=== PATIENT | male | born 2005 | race Caucasian/White ===

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

== ENCOUNTER 2024-02-11 22:32 | Emergency (ER) | payer OTHER, SELFPAY ==
--- NOTE | 2024-02-11 22:43 | ED_ITS ---
HPI - Animal Bite General Chief Complaint: Wound/Laceration Stated Complaint: dog bite Time Seen by Provider: 02/11/24 22:40 Source: patient Mode of arrival: ambulatory Limitations: no limitations History of Present Illness ED Provider: Dr. Fabián Rivera HPI narrative: 18-year-old male with no significant past medical history who presents to the emergency department for evaluation of pain and swelling in the right hand after sustaining a dog bite yesterday. The patient states that he was playing with his dog. He reached for a rope toy at the same time that the dog did and the dog bit his hand. Patient states that initially had pain in his hand and thumb around the areas of the dog bite. He states this evening however the pain got worse and he noticed increased swelling of the back of his hand. He denied fever, chills, fatigue. Patient does not know when his last tetanus shot was given. 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 Related Data Previous Rx's ?Medication ?Instructions ?Recorded ibuprofen 600 mg tablet 600 mg PO Q6H PRN fever or pain 09/21/22 #30 tabs lidocaine 4 % topical patch 1 patch topical DAILY PRN pain #10 09/21/22 (Salonpas (lidocaine)) ea amoxicillin 875 mg-potassium 1 tab PO Q12H 7 days #14 tabs 02/11/24 clavulanate 125 mg tablet Allergies Allergy/AdvReac Type Severity Reaction Status Date / Time No Known Allergies Allergy Verified 02/11/24 22:47 [No Known Allergies*] Review of Systems 2 Review of Systems: Yes all other systems are reviewed and are negative PMFSH Past Medical History Medical History No known health problems Social History Social History Alcohol intake: never Substance Use Type: Marijuana Physical Exam ED Exam: General: Awake, alert in no distress Extremities: Right hand: Patient has multiple puncture wounds to the dorsal aspect of his hand and dorsal aspect of the index finger. There is significant soft tissue swelling, erythema, increased warmth over the 3rd 4th metacarpal area. Patient also has a superficial puncture wound to the right thumb with increased swelling over the 1st metacarpal area. Patient has normal strength but does have pain with making a fist and with moving his right thumb. Psych: Pleasant, cooperative Medical Decision Making Medical Decision Making MDM Narrative: 18-year-old male with no significant past medical history who presents emergency department for evaluation of pain and swelling left hand after sustaining a provoked dog bite to the left hand yesterday. Patient's pain and swelling increased today therefore he came to the emergency department to be seen. Patient had no systemic symptoms. He does not know when his last tetanus shot was given. The dog is owned by the patient and vaccinations are up-to-date. The dog and also be quarantine at home. Patient's vital signs were normal. Examination did reveal multiple bites to the dorsal aspect of the right hand, with a superficial bite/scratch wound to the dorsal aspect of the right thumb and index finger. Differential diagnosis: ?Includes but is not limited to crush injury, cellulitis, dog bite Patient was initially treated with the following:Tdap 0.5 mL IM, Augmentin 875/125 orally and ibuprofen 400 mg orally Course: 22:53 Patient's presentation is consistent with cellulitis after a dog bite that happened 2 days prior to presentation. Patient was started on Augmentin 875/125 q.12 hours x7 days. He was also advised to take ibuprofen 40 mg 3 times a day as needed for pain. The patient was advised to keep his hand elevated and to use a hot compress for 10-15 minutes 4 to 6 times a day. Patient's wounds were covered with bacitracin and a nonstick dressing. He was also placed in a cock- up wrist splint. Patient will need to follow-up with our hand surgeon in 2-3 days. I did tell him he should return to the emergency department if his symptoms get worse. He was given printed and verbal instructions and discharged home Independent Historian Clinical information obtained from an independent historian. History obtained from or confirmed by: Parent Prescription Management I considered prescription management with: Antibiotic Discharge Plan Discharge Clinical Impression: Dog bite of left hand including fingers with infection Patient Disposition: Home, Self-Care Instructions: Animal Bite (ED) Additional Instructions: Dog bite with infection (cellulitis) Discharge Instructions The dog by, an infection of your skin. This is called cellulitis. Take Augmentin 875/125, 1 pill every 12 hours for 7 days. This is an antibiotic that should help your body fight off the infection. Keep the area of cellulitis elevated to help reduce swelling in the infected area and this helps with the healing process Also apply a heating pad on low or a warm compress for 15 minutes, 4-6 times a day. This will increase the blood flow to the area and will bring white blood cells to the area which will help your body fight off the infection. Take Motrin(ibuprofen) 200mg pills, 2 pills every 6 hours as needed for pain. Also take Tylenol( acetaminophen) 325 mg pills, 2 pills every 4 hours as needed for pain. Apply bacitracin twice a day to the wound for 1 week. Keep the splint on your hand is well Signs worsening infection include fever, chills, weakness, increased pain, increased redness, increased swelling or red streaks going away from the area of infection. If you develop any of these symptoms or any other symptoms that are concerning to you, see your doctor immediately or return to the Emergency Department. Follow up with our orthopedic hand surgeon, Dr. Presley in 2 days for re- evaluation. Call the office on Monday to see if they can get you in to the office on that day to make sure that this infection is not getting worse Please read the other printed instructions that we printed for you. You received a tetanus, diptheria and Pertussin vaccination (Tdap) today in the emergency department. This vaccination is good for 5 years. If you have a contaminated caught between 5 and 10 years then you will need another tetanus vaccination. After 10 years you will need a booster tetanus shot. Rabies warning At this time you do not need rabies shots however your dog should be cap at home for 10 days. If your dog starts to act strangely, starts attacking people for no good reason or if the dog looks sick in any way then you need to bring your dog their forestry conservation worker to be checked for possible rabies. Prescriptions: New amoxicillin-pot clavulanate 875-125 mg tablet 1 tab PO Q12H 7 Days Qty: 14 0RF No Action ibuprofen 600 mg tablet 600 mg PO Q6H PRN (Reason: fever or pain) Qty: 30 0RF lidocaine [Salonpas (lidocaine)] 4 % adhesive patch,medicated 1 patch topical DAILY PRN (Reason: pain) Qty: 10 0RF Rx Instructions: may leave on for up to 12 hrs Referrals: Fabián Rivera MD [Emergency Provider] - Isabela Zapata MD [Physician] - 2 days (Left hand dog bite with cellulitis) Print Language: Ukrainian
[2024-02-11 22:45] VITALS: BP 127/81; PULSE 69; RESP 18; TEMP 37.2; O2SAT 98; BMI 22.0
[2024-02-11] MEDS: Bacitracin Oint 0.9 GM PACKET 1 APPL TOPICAL (22:46)
[2024-02-11] MEDS: Ibuprofen 400 MG TABLET PO (22:46)
[2024-02-11] MEDS: Diphth,Pertus(ACell),Tet Adult 0.5 ML SYRINGE IM (22:46)
[2024-02-11] MEDS: Amoxicillin/Potassium Clav 875 MG TABLET PO (22:46)
[2024-02-12 03:12] VITALS: BP 127/81; PULSE 69; RESP 18; TEMP 37.2; O2SAT 98
== END 2024-02-12 03:13 | disposition home or self-care (01) ==
PROVIDERS: Emergency Provider Emergency Medicine Emergency Medical Services; PCP Pediatrics
DX: S61.051A Open bite of right thumb without damage to nail, initial encounter (principal); S61.451A Open bite of right hand, initial encounter; W54.0XXA Bitten by dog, initial encounter; Y93.89 Activity, other specified; Y92.009 Unspecified place in unspecified non-institutional (private) residence as the place of occurrence of the external cause; Y99.9 Unspecified external cause status; Z23 Encounter for immunization; F12.90 Cannabis use, unspecified, uncomplicated
CPT/HCPCS: 90471; 90715; 99283; 99284